=== PATIENT | female | born 1960 | race Caucasian/White ===

== ENCOUNTER → 2017-03-09 | Outpatient (CLI) | payer OTHER ==
[~2017-03-09] VITALS: Ht 172.7 cm; Wt 92.1 kg
[~2017-03-09] MED LIST: LEVOTHYROXINE0.05 MG PO; MOBIC15 MG PO; TRIAMCINOLONE A80 G2 TOP; VALSARTAN-HCTZ1 EAC1 PO
--- NOTE | ~2017-03-09 | HPC ---
[facility] [address] [address] PAIN MANAGEMENT CONSULTATION Name: KWANCARIE LYNN Room #: REG BAM Reyes#: [id number] Admission: 03/09/17 Attend Phys: Duy Potter DO Discharge: Date of : 62 Report #: [id number] THIS REPORT FOR: //name// CC: WESLEY Potter The patient is a very pleasant 56-year-old female, somewhat self-referred to the pain clinic for evaluation of pain, primarily right neck, shoulder and arm with paresthesia into the elbow. Primary pain is in the triceps and biceps. She has some carpal tunnel type symptoms at bedtime with paresthesia in her hands in the morning. She notes this has been going on for years. the shoulder exacerbates pain, it is tender to touch. Ice, nonsteroidal anti-inflammatory medications and rest seems to help. She has had ultrasound, which has given her some relief. Completed physical therapy in December, currently doing stretching in both legs with some efficacy. She had to stop her physical therapy recently, she had a lesion taken off of her right scapular area (topical mold, benign). She has been using some Tylenol, had began of Advil prior to the dermatology surgery. Notes the pain is shooting, aching, gnawing, sharp, stabbing, tender, rates anywhere from 5 to 10 on a 0-10 visual analog scale. REVIEW OF SYSTEMS: Complete review of systems is attached to chart and gone over with the patient. She is , her sister works in the pain clinic. She does not smoke, drink alcohol to excess. History of some reactive airway disease, uses a p.r.n. metered dose inhaler, hypertension treated with losartan, hydrochlorothiazide. Hypothyroid for many years, currently stable with Synthroid. Has a 26-year-old daughter. She is a homemaker. Pain impact score averages 22/70. PHYSICAL EXAMINATION: GENERAL: Reveals a 5 feet 8 inches, 203 pounds female, BMI is 30.9 kilograms per meter squared. Blood pressure is modestly elevated 158/90, pulse 70, respirations 16, room air oxygen saturation 98%. HEENT: Cranial nerves 2-12 are grossly intact. Pupils equal, react to light and accommodation. Extraocular muscles are intact. Thyroid is nominally enlarged, no nodules are noted. MUSCULOSKELETAL: Cervical range of motion, extension exacerbates some pain. Mildly positive Lhermitte's into the right arm. Biceps resistance, testing exacerbates pain, paresthesia into the C6 distribution. Slight decreased right biceps reflex compared to the left. Brachioradialis and triceps are symmetric. Tinel's is negative. Radial ulnar. HEART: Regular and rhythmical without murmur. LUNGS: Clear to auscultation. ABDOMEN: Benign. MUSCULOSKELETAL: Gait is tandem. Skin integument generally intact. [address] [address] PAIN MANAGEMENT CONSULTATION Name: CARIE KWAN Room #: REG BAM Reyes#: [id number] Admission: 03/09/17 Attend Phys: Duy Potter DO Discharge: Date of : 62 Report #: [id number] DIAGNOSTIC STUDIES: There are no diagnostic studies available. Passive rotation of the shoulder exacerbated some modest pain. I ordered x-rays of the shoulder, which I personally reviewed and asked the radiologist to review. There really is no specific pathology noted in the shoulder proper. Resistance to rotation, did not exacerbate pain ( negative rotator cuff). With myofascial and osseous pathology ruled out, it appears to be a cervical radicular component. After discussion with the patient today, we have elected to proceed with cervical epidural injection under fluoroscopy given positive neural tensioning symptoms, C6 radicular pain pattern and failure of nonsteroidal anti-inflammatory medications and physical therapy for greater than 6 months. We will have the patient continue nonsteroidal anti-inflammatory medication, I have taken the liberty of writing for meloxicam 15 mg 1 a day, discontinue [id number] anti-inflammatories. Follow up on a simply as needed basis. ASSESSMENT: Symptomatic cervical radiculopathy. PROCEDURE: Cervical epidural injection under fluoroscopy. PROCEDURE NOTE: After written and informed consent was obtained including risk of dural puncture, spinal cord trauma, paralysis and increased pain, the patient was taken to the fluoroscopy suite and placed in the prone position, with appropriate abdominal bolstering, neck was flexed, palms under the thighs. Skin was prepped with ChloraPrep. Sterile draping was applied. Skin wheal with 1% Xylocaine was raised. A 22-gauge 3-1/2 inch epidural Tuohy needle was placed via a midline approach at the C7-T1 interspace, advanced under biplanar fluoroscopy using continuous loss of resistance. With appropriate loss of resistance at the expected depth on lateral view, the glass loss of resistance syringe was disconnected. A low volume extension tubing was connected to the needle and a 5 mL syringe. Negative aspiration for cerebrospinal fluid or blood was noted. A 1 mL of Omnipaque was injected which showed spread within the epidural space on biplanar fluoroscopy. This was followed with 80 mg of triamcinolone plus 1 mL of 1.5% preservative Xylocaine. Needle was withdrawn to the interspinous ligament, 0.5 mL of Xylocaine was used to flush the needle. The needle was then completely withdrawn. The area was cleansed. Band-Aid was applied. The patient was allowed to move off the procedure table and ambulated to the recovery room, monitored for an appropriate period of time, discharged in good and stable condition. By: [id number] Duy Potter DO /nt
[2017-03-09 14:20] VITALS: BP 132/80
== END | disposition home or self-care (01) ==
LOC: PAIN 09:03
DX: M54.12 Radiculopathy, cervical region (principal); J45.909 Unspecified asthma, uncomplicated; I10 Essential (primary) hypertension; E03.9 Hypothyroidism, unspecified